=== PATIENT | male | born 1950 | race Caucasian/White ===

== ENCOUNTER 2023-12-12 06:03 | Day surgery (SDC) | payer OTHER ==
[2023-12-10 12:40] LABS: Absolute Eosinophils 0.1 K/uL (0-0.5); Absolute Lymphocytes (CBC) 1.4 K/uL (0.7-4.9); Absolute Monocytes 0.5 K/uL (0.1-1.3); Absolute Neutrophil 3.7 K/uL (1.8-8.0); Basophils % 0.7 % (0-1.3); Eosinophils % 1.1 % (0-4.4); Hematocrit 48.3 % (39.6-49.0); Hemoglobin 16.2 g/dL (13.6-17.9); Lymphocytes % 24.5 % (15.3-44.8); MCHC 33.5 g/dL (32.0-36.0); MCV 89.5 fL (80-100); Neutrophils % 64.7 % (41.7-73.7); Platelets 177 thou/uL (152-406); Red Cell Distribution Width 14.2 % (12.1-15.2)
[2023-12-10 12:48] LABS: Anion Gap 9.1 mEq/L (5.0-15.0); Potassium 4.1 mEq/L (3.5-5.1)
--- NOTE | 2023-12-10 14:11 | EKG ---
Test Date: 2023-12-10 Test Time: 11:11:44 Engineering Supervisor: MIGUEL MEASUREMENT RESULTS: Intervals: Rate: 69 RI: 210 QRSD: 106 QT: 424 QTc: 454 [place]: P: 64 RI: 210 QRS: 79 T: 72 INTERPRETIVE STATEMENTS: Sinus rhythm with 1st degree AV block Otherwise normal ECG Compared to ECG 12/10/2023 11:10:56 Sinus arrhythmia no longer present Electronically Signed On 12-10-23 14:10:18 CDT by Stephane Grant
--- NOTE | 2023-12-10 14:11 | EKG ---
Test Date: 2023-12-10 Test Time: 11:10:56 Venue Coordinator: MIGUEL MEASUREMENT RESULTS: Intervals: Rate: 66 FL: 214 QRSD: 104 QT: 424 QTc: 444 [place]: P: 59 FL: 214 QRS: 78 T: 67 INTERPRETIVE STATEMENTS: Sinus rhythm with sinus arrhythmia with 1st degree AV block Otherwise normal ECG No previous ECG available for comparison Electronically Signed On 12-10-23 14:10:19 CDT by Stephane Grant
[2023-12-12] MEDS ORDERED: Ringers Lactate 1,000 ML IV ONE (06:26)
[2023-12-12] MEDS ORDERED: NS 0.9% VIAL 10 ML ONE (07:08)
[2023-12-12] MEDS ORDERED: SUGAMMADEX SODIUM 200 MG/2 ML VIAL IV ONE (08:16)
[2023-12-12 09:55] VITALS: BP 154/76; TEMP 97.6; O2SAT 100
--- NOTE | 2023-12-16 12:05 | OP ---
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 Procedure: Injection of calcium hydroxyapatite, long-lasting Prolaryn gel into bilateral vocal cords . Anesthesia: General endotracheal anesthesia was administered. Estimated Blood Loss: None. Specimens: None. Findings: Complete right vocal fold paralysis and bilateral vocal fold atrophy. Complications: None. Disposition: Stable. The patient tolerated the procedure well. Indication For Procedure: The patient is a pleasant 73-year-old male who presented to my outpatient clinic with idiopathic right vocal fold paralysis after pneumonia infection. These were indications to bring the patient to operative suite and that the patient was having issues with swallowing and wi th his voice and protecting his airway. He understood. All questions were answered. Risks versus b enefits and complications were explained in detail. The consent form was signed, which was placed in the chart. Description Of Procedure: The patient was transferred from the preoperative holding area to the oper ative suite by Department of Anesthesia, placed on the operating room table supine. Sedated and intu bated with a #6 endotracheal tube. The table was rotated 90 degrees, and the patient's neck was plac ed into extension. A rigid laryngoscope was introduced into the right oral commissure and directed a long the endotracheal tube and suspended to the [place] stand. A telescope was used for further documen tation. Pictures were taken pre injection. I then found the vocal process of the right true vocal f old, and I injected approximately 0.8 mL of Prolaryn gel into the right vocal fold and then I injecte d the remaining 0.2 mL just lateral to the left vocal process to bulk up the left vocal fold. Postop erative pictures were taken. The patient tolerated the procedure well. He was discharged home on co mplete voice rest and will follow up in 1 to 2 weeks or sooner if needed. MICHELLE/ALLANL Voice ID: [id number] Report ID: [id number]
== END 2023-12-12 09:47 | disposition home or self-care (01) ==
LOC: OR 06:03
PROVIDERS: ATTEND Otolaryngology Facial Plastic Surgery
PROC: 3E0F8GC Introduction of Other Therapeutic Substance into Respiratory Tract, Via Natural or Artificial Opening Endoscopic (ICD-10-PCS; principal; 2023-12-12 07:30)
DX: J38.01 Paralysis of vocal cords and larynx, unilateral (principal)
CPT/HCPCS: 31570; 93005 ×2; 85025; 80048; 36415; A4216; J7120